=== PATIENT | male | born 1995 | race Hispanic/Latino ===

== ENCOUNTER 2023-11-17 01:24 | Emergency (ER) | payer MEDICAID, SELFPAY | END 2023-11-17 02:10 | LOC: ERS 01:24 | DX: M25.572 Pain in left ankle and joints of left foot (principal); F17.210 Nicotine dependence, cigarettes, uncomplicated; X58.XXXA Exposure to other specified factors, initial encounter ==

== ENCOUNTER 2023-11-17 04:21 | Emergency (ER) | payer MEDICAID, SELFPAY | END 2023-11-17 05:35 | LOC: ERS 04:21 | DX: T18.2XXA Foreign body in stomach, initial encounter (principal); F17.210 Nicotine dependence, cigarettes, uncomplicated | CPT/HCPCS: 74018 ==